=== PATIENT | male | born 1960 | race Caucasian/White ===

== ENCOUNTER 2023-10-15 12:03 | Emergency (ER) | payer OTHER, SELFPAY ==
[2023-10-15 12:13] VITALS: BP 175/92
[2023-10-15 12:43] VITALS: BMI 26.6
--- NOTE | 2023-10-15 12:45 | ED.GENMED ---
History of Present Illness
General
Chief Complaint: Abdominal Pain
Source: patient
Exam Limitations: none
Time Seen by Provider: 10/15/23 12:37
Travel History
Have you had any contact with someone who has COVID-19?: No
Do you have any symptoms of coronavirus? Fever > 100 degrees, chills, cough, shortness of breath, sore throat, loss of taste or smell, muscle aches, or headache?: No
History of Present Illness
History of Present Illness:
See MDM
Past History
Past History
ED Past Medical History: HTN and Hypercholesterolemia
ED Past Surgical History: Cardiac
Social History
Tobacco: Former smoker
Alcohol: Daily
Drug: Marijuana
Phy Exam
Physical Exam
Physical Exam:
See MDM
Course
Orders/Labs/Results
Orders:
Orders
10/15/23 12:43
CT Abd/pelvis W Iv Cont Urgent
Comment:
Reason For Exam: LLQ pain
10/15/23 12:53
Complete Blood Count/With Diff Urgent
Comprehensive Metabolic Panel Urgent
10/15/23 15:26
LevoFLOXacin [Levaquin] 500 mg PO NOW STA
MetroNIDAZOLE [Flagyl] 500 mg PO NOW STA
Abnormal Lab Results
10/15/23
12:53
RBC 4.42 L 10^6/uL
(4.70-6.10)
MCH 33.5 H pg
(27.0-31.0)
Absolute Neuts (auto) 7.4 H 10^3/uL
(1.4-6.5)
Absolute Monos (auto) 0.9 H 10^3/uL
(0.1-0.6)
Lymphocytes % 18.0 L %
(20.5-51.1)
10/15/23 12:53
10/15/23 12:53
Vital Signs
Initial and Last Documented VS:
Initial Vital Signs
Temp Pulse Resp BP Pulse Ox
98.3 F 73 16 175/92 96
10/15/23 12:13 10/15/23 12:13 10/15/23 12:13 10/15/23 12:13 10/15/23 12:13
Last Documented Vital Signs
Temp Pulse Resp BP Pulse Ox
98.3 F 73 16 175/92 96
10/15/23 12:13 10/15/23 12:13 10/15/23 12:13 10/15/23 12:13 10/15/23 12:13
MDM/Problems Addressed
Differential Diagnosis Includes:
HPI and MDM Narrative:
63-year-old male presenting for evaluation of left lower quadrant pain. This has been ongoing for the past day or so. Symptoms are worse with deep inspiration or movement. There is mild diarrhea. This reminds him of an episode 2 years ago when
he was diagnosed with diverticulitis. He complains of dark stool but denies being on blood thinners.
Physical exam
General: Well appearing and non-toxic
HEENT: protecting airway
Neck: appears supple
CV: No evidence of cyanosis
Resp: No accessory muscle use
Abd: Non-distended. Point tenderness to left lower quadrant without
Extremities: No deformities
Neuro: alert
Psych: Normal affect
Skin: Intact
Problems Addressed including Acute and Chronic Conditions affecting care:
1. Left lower quadrant abdominal
Acuity: acute
Prognosis: stable
Details: Will obtain CT but given his history, discussed likely diverticulitis
2. [ ]
Acuity: acute
Prognosis: stable
Details:
3. [ ]
Acuity: acute
Prognosis: stable
Details:
4. [ ]
Acuity: acute
Prognosis: stable
Details:
5. [ ]
Acuity:
Prognosis:
Details:
Updates
Differential Diagnosis (but not limited to): Diverticulitis, colitis, kidney stone
Testing considered: Urinalysis but he denies urinary symptoms
Drug therapy (if applicable): OTC meds, please see d/c instruction regarding Rx drugs
Amount and/or Complexity of Data Reviewed
Clinical info obtained from: Patient
External data reviewed: N/A
Labs I independently reviewed (but not limited to): [ ]
Radiology: N/A
Pulse Ox: not hypoxic
EKG independently reviewed: N/A
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
Critical Care: N/A
Risk of Complication:
Social Determinants of health: Good social support
Discussed with other providers: N/A
Escalation of Care includes Admit/Obs: After being observed in the Emergency Department, pt stable for discharge.
Occasional wrong word or 'sound a like' substitutions may have occurred due to the inherent limitations of voice recognition software. Read the chart carefully and recognize, using context, where substitutions have occurred.
*Critical Care Note
Total Time (30-74mins, 75-104mins- exclusive of procedures): Not Applicable
ED Attending Note
-
Portions of this chart may have been created with voice recognition software.� Occasional wrong word or��sound alike� substitutions may have occurred due to the inherent limitations of voice recognition software.
Discharge Plan
Departure
Patient Disposition: Home (Routine Discharge)
Date of Disposition: 10/15/23
Time of Disposition: 15:27
Patient with high blood pressure during this ER visit?: Yes
Discharge Problem:
Acute diverticulitis of intestine
Instructions: Diverticulitis (DC), BLOOD PRESSURE
Prescriptions:
New
metronidazole 500 mg Tablet
500 mg PO TID Qty: 21 0RF
levofloxacin 500 mg Tablet
500 mg PO DAILY Qty: 7 0RF
No Action
aspirin 81 MG tablet,delayed release (DR/EC)
81 mg PO DAILY
cetirizine 10 MG tablet
10 mg PO DAILY
metoprolol succinate 50 MG tablet extended release 24 hr
50 mg PO DAILY
sulfamethoxazole-trimethoprim 1 TABLET tablet
1 tab PO BID
fenofibric acid (choline) 135 MG capsule,delayed release(DR/EC)
135 mg PO DAILY
thiamine HCl (vitamin B1) 100 MG tablet
100 mg PO BID 0RF
folic acid 1 MG tablet
1 mg PO DAILY Qty: 30 0RF
metronidazole 500 MG tablet
500 mg PO TID Qty: 36 0RF
levofloxacin [Levaquin] 500 MG tablet
500 mg PO DAILY Qty: 12 0RF
Referrals:
Panda Kolb MD [Family Provider] -
Activity Restrictions/Additional Instructions:
Please return for any worsening symptoms.
You may return at any time if you have further concerns.
Please follow up with your doctor at the first available appointment, preferably this week.
Thank you for choosing [facility].
Interventions
Interventions:
*Risk Screen - Suicide Last Done: 10/15/23 12:49
*General Assessment Last Done: 10/15/23 12:13
*Neglect/Abuse Screening Last Done: 10/15/23 12:49
*ED COVID-19 Vaccine History Last Done: 10/15/23 12:13
CC-Ltcngz-Flgkwtzjnt Assessment Last Done: 10/15/23 12:49
[2023-10-15 13:00] LABS: % Basophils 0.7 % (0-2); % Eosinophils 1.1 % (0-6); % Immature Granulocytes 0.4 % (0-0.5); % Monocytes 8.7 % (1.7-9.3); % Neutrophils 71.1 % (42.2-75.2); Absolute Basophils 0.1 10^3/uL (0-0.2); Absolute Eosinophils 0.1 10^3/uL (0-0.7); Absolute Lymphocytes 1.9 10^3/uL (1.2-3.4); Absolute Monocytes 0.9 10^3/uL (0.1-0.6); Absolute Neutrophils 7.4 10^3/uL (1.4-6.5); Hematocrit 40.7 % (39.0-52.0); Hemoglobin 14.8 g/dL (13.0-18.0); Mean Corp Hgb Conc. 36.4 g/dL (33.0-37.0); Mean Corpuscular Hgb 33.5 pg (27.0-31.0); Mean Corpuscular Volume 92.1 fL (80.0-94.0); Mean Platelet Volume 9.3 fL (7.4-10.4); Nucleated Red Blood Cells % 0 % (-); Platelet Count 277 10^3/uL (130-400); Red Blood Cell Count 4.42 10^6/uL (4.70-6.10); Red Cell Dist. Width 12.9 % (11.5-14.5); White Blood Cell Count 10.5 10^3/uL (4.8-10.8)
[2023-10-15 13:16] LABS: ALT (SGPT) 21 U/L (0-50); AST (SGOT) 25 U/L (17-59); Albumin 4.3 g/dl (3.5-5.0); Alkaline Phosphatase 82 U/L (38-126); Blood Urea Nitrogen 14 mg/dl (9-20); Calcium 9.3 mg/dl (8.4-10.2); Carbon Dioxide 25 mmol/L (22-30); Chloride 106 mmol/L (98-107); Estimated Creatinine Clearance 104 ml/min; Glucose 97 mg/dl (70-99); Potassium 4.4 mmol/L (3.5-5.1); Sodium 136 mmol/L (135-145); Total Bilirubin 0.7 mg/dl (0.2-1.3); Total Protein 7.1 g/dl (6.3-8.2); eGFR > 60.00
[2023-10-15] MEDS: LEVAQUIN 500 MG PO (15:37)
[2023-10-15] MEDS: FLAGYL 500 MG PO (15:37)
[2023-10-15 15:44] VITALS: BP 168/94
== END 2023-10-15 15:57 | disposition home or self-care (01) ==
LOC: EMR 12:03
PROVIDERS: EMERGENCY PHYSICIAN Student in an Organized Health Care Education/Training Program; FAMILY PHYSICIAN Internal Medicine
DX: K57.32 Diverticulitis of large intestine without perforation or abscess without bleeding (principal); I10 Essential (primary) hypertension; Z87.891 Personal history of nicotine dependence
CPT/HCPCS: 99285; 74177; 80053; 85025; Q9967

== ENCOUNTER 2024-01-14 10:51 | Emergency (ER) | payer OTHER, SELFPAY ==
[2024-01-14 11:02] VITALS: BP 167/92
--- NOTE | 2024-01-14 12:08 | ED.GENMED ---
History of Present Illness
General
Chief Complaint: Male Genito-Urinary Symptoms
Source: patient
Exam Limitations: none
Time Seen by Provider: 01/14/24 11:23
Nursing documentation reviewed up to this point in time: agreed with
Travel History
Have you had any contact with someone who has COVID-19?: No
Do you have any symptoms of coronavirus? Fever > 100 degrees, chills, cough, shortness of breath, sore throat, loss of taste or smell, muscle aches, or headache?: No
History of Present Illness
History of Present Illness:
63 y/o M with h/o AVR 2002
here with ongoign L testicular pain
pt says that about 1.5 mo ago he got L sided testicular pain, no swelling, no urinary yspmoms
went to the PCP and was diagnosed with epididymitis (no imaging), put on 14 days of abx (12/06 cipro 14 days)
then he felt ok for about 3 days before pain returned
went back to PCP who then gave him different abx for 10 days (levaquin)
he went to [place] and reurned on 12/27 and was still having the aching L testicular pain
had outpatient US and was told it was normal
then f/u with [facility] urology last week, was given rx for mobic 01/01 asnd just finished it
was feelign better until a few days ago and the pain cameb ack
feels better if he massages it
he has not had any swelling, urinary sypmtoms, lumps, weight loss, fever, chills, nausea, vomiting, diarrhea, abdominal pain, back pain, h/o koidney stones
no concern for STI.
Past History
Past History
ED Past Medical History: HTN and Hypercholesterolemia
ED Past Surgical History: Cardiac
Social History
Tobacco: Former smoker
Alcohol: Daily
Drug: Marijuana
Review of Systems
Review of Systems
Allergies reviewed?: Yes
All Other Systems: Not applicable
Phy Exam
Physical Exam
Physical Exam:
GENERAL: Alert , in no apparent distress
EYE: pupils equal and reactive
NECK: Supple
ENT: o/p clr, mmm.
CARDIAC: Regular rate and rhythm .
LUNGS: Clear breath sounds bilaterally, no acute respiratory distress, no wheezes/rales/rhonchi
ABDOMEN: Soft, without focal tenderness, no r/g, no cvat, normal bowel sounds
; Normal inspection, no scrotal edema/tenderness, no epididymal tendneres, no masses, normal cremesterics, no inguinal lesions, no obvious hernia
NEUROLOGICAL: Alert and oriented, no focal neuro deficits
SKIN: Warm and dry, skin intact.
MUSCULOSKELETAL: No edema, well perfused. neg duane's sign
PSYCH: Normal and appropriate interaction.
Course
Orders/Labs/Results
Orders:
Orders
01/14/24 12:14
Scrotum US [US Scrotum] Urgent
Comment:
Reason For Exam: left testicular pain
US Groin (Imaging Only) LT Urgent
Comment:
Reason For Exam: left groin pain
01/14/24 12:23
Complete Blood Count/With Diff Urgent
Comprehensive Metabolic Panel Urgent
Urinalysis Reflex To Culture Urgent
Date Specimen was Collected: 01/14/24
Time Specimen was Collected: 12:18
01/14/24 13:49
CT Abd/Pel (IV only)-DH only Urgent
Comment:
Reason For Exam: L testicular pain, left groin pain
01/14/24 14:11
Ketorolac [Toradol] 30 mg IV NOW STA
Abnormal Lab Results
01/14/24
12:23
RBC 4.31 L 10^6/uL
(4.70-6.10)
MCH 33.2 H pg
(27.0-31.0)
Carbon Dioxide 21 L mmol/L
(22-30)
Glucose 100 H mg/dl
(70-99)
01/14/24 12:23
01/14/24 12:23
Vital Signs
Initial and Last Documented VS:
Initial Vital Signs
Temp Pulse Resp BP Pulse Ox
98.0 F 67 18 167/92 96
01/14/24 11:02 01/14/24 11:02 01/14/24 11:02 01/14/24 11:02 01/14/24 11:02
Last Documented Vital Signs
Temp Pulse Resp BP Pulse Ox
98.1 F 67 18 176/72 96
01/14/24 15:01 01/14/24 16:42 01/14/24 11:02 01/14/24 16:42 01/14/24 16:42
MDM/Problems Addressed
Differential Diagnosis Includes:
epidydimitis, hernia, radicular pain from back,
MDM/Problems Addressed:
63 y/o M with iongonig L scrotal/tesituclar pain x 1 mo
despite 2 rounds of FQ abx and seeing urology
finished rx for NSAID which ehlped and pain returned
never had swelling
no weakness/numbness in leg or perineal region
no fever, urinary sytpmoms
? some impotence issues
no hematospermia
on exam nontender
normal appearnace of region
no hernais
d/w ed attendign after US of scrotum R epididymal head cyst (which pt knew about) but doesn't expalin pain
eval with CT showing no hernia
aneurysmal borderline dilation of infrarenal abd aorta d/w patient, incidental
f/u with uro
ua neg
*Critical Care Note
Total Time (30-74mins, 75-104mins- exclusive of procedures): Not Applicable
ED Attending Note
-
Portions of this chart may have been created with voice recognition software.� Occasional wrong word or��sound alike� substitutions may have occurred due to the inherent limitations of voice recognition software.
Discharge Plan
Departure
Patient Disposition: Home (Routine Discharge)
Date of Disposition: 01/14/24
Time of Disposition: 16:26
Patient with high blood pressure during this ER visit?: No
Condition: Fair
Discharge Problem:
Left testicular pain
Instructions: Acute Pain, Adult (DC)
Prescriptions:
New
meloxicam 7.5 mg tablet
7.5 mg PO DAILY Qty: 7 0RF
No Action
aspirin 81 MG tablet,delayed release (DR/EC)
81 mg PO DAILY
cetirizine 10 MG tablet
10 mg PO DAILY
metoprolol succinate 50 MG tablet extended release 24 hr
50 mg PO DAILY
sulfamethoxazole-trimethoprim 1 TABLET tablet
1 tab PO BID
fenofibric acid (choline) 135 MG capsule,delayed release(DR/EC)
135 mg PO DAILY
thiamine HCl (vitamin B1) 100 MG tablet
100 mg PO BID 0RF
folic acid 1 MG tablet
1 mg PO DAILY Qty: 30 0RF
metronidazole 500 MG tablet
500 mg PO TID Qty: 36 0RF
levofloxacin [Levaquin] 500 MG tablet
500 mg PO DAILY Qty: 12 0RF
metronidazole 500 mg Tablet
500 mg PO TID Qty: 21 0RF
levofloxacin 500 mg Tablet
500 mg PO DAILY Qty: 7 0RF
Referrals:
Panda Kolb MD [Family Provider] - Follow up in 5-7 days
Activity Restrictions/Additional Instructions:
CALL YOUR UROLOGIST THIS WEEK FOR FOLLOW UP
YOU CAN TRY THE MELOXICAM ONCE A DAY FOR 5 MORE DAYS WITH FOOD
YOU HAD NO SIGNS OF HERNIA, CYST, INFECTION, EPIDIDYMITIS, ETC
RETURN FOR ANY CONCERNS
Interventions
Interventions:
*Risk Screen - Suicide Last Done: 01/14/24 12:30
*General Assessment Last Done: 01/14/24 11:02
*Neglect/Abuse Screening Last Done: 01/14/24 12:30
ED- Fall Risk Assessment Last Done: 01/14/24 16:47
*ED COVID-19 Vaccine History Last Done: 01/14/24 11:02
*Nursing Disposition Last Done: 01/14/24 16:47
ED-Male Genitourinary Assessment Last Done: 01/14/24 12:30
Discharge Date and Time
Discharge Date/Time: 01/14/24 16:48
Print Language: AZERI
[2024-01-14 12:39] LABS: % Eosinophils 1.5 % (0-6); % Immature Granulocytes 0.3 % (0-0.5); % Lymphocytes 24.4 % (20.5-51.1); % Monocytes 8.3 % (1.7-9.3); % Neutrophils 64.5 % (42.2-75.2); Absolute Basophils 0.1 10^3/uL (0-0.2); Absolute Eosinophils 0.1 10^3/uL (0-0.7); Absolute Lymphocytes 1.7 10^3/uL (1.2-3.4); Absolute Monocytes 0.6 10^3/uL (0.1-0.6); Absolute Neutrophils 4.6 10^3/uL (1.4-6.5); Hematocrit 40.5 % (39.0-52.0); Hemoglobin 14.3 g/dL (13.0-18.0); Mean Corp Hgb Conc. 35.3 g/dL (33.0-37.0); Mean Corpuscular Hgb 33.2 pg (27.0-31.0); Mean Platelet Volume 9.5 fL (7.4-10.4); Nucleated Red Blood Cells % 0 % (-); Platelet Count 259 10^3/uL (130-400); Red Blood Cell Count 4.31 10^6/uL (4.70-6.10); Red Cell Dist. Width 12.8 % (11.5-14.5); White Blood Cell Count 7.1 10^3/uL (4.8-10.8)
[2024-01-14 12:40] LABS: Urine Albumin Negative (Neg - Trace); Urine Bilirubin Negative (Negative); Urine Character Clear (Clear); Urine Color Yellow; Urine Glucose Negative (Negative); Urine Ketone Negative (Negative); Urine Leukocyte Negative (Negative); Urine Nitrite Negative (Negative); Urine Occult Blood Negative (Negative); Urine Specific Gravity 1.005 (<1.030); Urine Urobilinogen Negative (Neg - 1+)
[2024-01-14 12:47] LABS: ALT (SGPT) 29 U/L (0-50); AST (SGOT) 30 U/L (17-59); Albumin 4.3 g/dl (3.5-5.0); Alkaline Phosphatase 64 U/L (38-126); Blood Urea Nitrogen 15 mg/dl (9-20); Calcium 9.3 mg/dl (8.4-10.2); Carbon Dioxide 21 mmol/L (22-30); Chloride 107 mmol/L (98-107); Glucose 100 mg/dl (70-99); Potassium 4.2 mmol/L (3.5-5.1); Sodium 136 mmol/L (135-145); Total Bilirubin 0.6 mg/dl (0.2-1.3); Total Protein 6.8 g/dl (6.3-8.2); eGFR > 60.00
[2024-01-14] MEDS: TORADOL 30 MG IV (14:19)
[2024-01-14 15:01] VITALS: BP 156/73
[2024-01-14 16:42] VITALS: BP 176/72
== END 2024-01-14 16:48 | disposition home or self-care (01) ==
LOC: EMR 10:51
PROVIDERS: Physician Assistant; EMERGENCY PHYSICIAN Student in an Organized Health Care Education/Training Program; FAMILY PHYSICIAN Internal Medicine
DX: N50.812 Left testicular pain (principal); Z87.891 Personal history of nicotine dependence
CPT/HCPCS: 99285; 96374; 74177; 76870; 76882; 80053; 81003; 85025; 93976; Q9967